=== PATIENT | female | born 1985 | race Asian ===

== ENCOUNTER 2023-12-25 11:19 | Outpatient (CLI) | payer OTHER ==
[~2023-12-25 11:19] MED LIST: GLIM2TAB PO; LISI10TA11 PO; METF500T PO
== END 2023-12-25 19:05 | disposition home or self-care (01) ==
LOC: RAD 11:19
PROVIDERS: ATTEND Physician Assistant
DX: M79.671 Pain in right foot (principal)
CPT/HCPCS: J0696